=== PATIENT | female | born 1965 | race Caucasian/White ===

== ENCOUNTER 2024-04-30 09:03 | Outpatient (CLI) | payer BC, SELFPAY ==
--- NOTE | 2024-04-30 10:00 | MR_ITS ---
WS: [id number] MRI HEAD WITH CONTRAST TECHNIQUE: Sagittal T1, T2 axial, T2 axial FLAIR, axial susceptibility weighted imaging, axial diffus ion weighted images, and coronal T2 images were obtained. Pre and post-T1 axial and post T1 coronal i mages. ADC and FSPGR images. 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 COMPARISON: None. FINDINGS: No evidence of restricted diffusion to suggest acute ischemia. Ventricular system and basal cisterns are patent. Mild to moderate patchy supratentorial white matter changes some in a pericallosal distri bution. Moderate parenchymal volume loss worse in the parietal lobes. Paranasal sinuses and mastoid a ir cells are well aerated. Normal optic chiasm and pituitary infundibulum. Temporal lobes and hippoca mpal formations are normal in appearance. No abnormal gadolinium enhancement. Normal visualized dural venous sinuses. MR/MR head wo/w con [id number] IMPRESSION: 1. No evidence of restricted diffusion to suggest acute ischemia. 2. Mild to moderate patchy supratentorial white matter changes some in a peric allosal distribution nonspecific in a patient of this age but can be seen with hypertension, diabetes, small vessel changes, and demyelinating disease. 3. Moderate parenchymal volume loss worse in the parietal lobes. 4. No significant T1 hypointense lesion load. No significant atrophy of the co rpus callosum. 5. No abnormal gadolinium enhancement. Normal dural venous sinuses.
[2024-04-30] MEDS: gadobenate dimeglumine 20 mL vial IV (10:23)
== END 2024-04-30 09:04 | disposition home or self-care (01) ==
LOC: RAD 09:05
PROVIDERS: PCP Nurse Practitioner Family; Visit Provider Specialist
DX: G37.9 Demyelinating disease of central nervous system, unspecified (principal); R90.82 White matter disease, unspecified; G31.89 Other specified degenerative diseases of nervous system; H53.2 Diplopia
CPT/HCPCS: 70553

== ENCOUNTER → 2024-05-15 12:40 | Outpatient (BNVA) | payer BC, SELFPAY | PROVIDERS: PCP Nurse Practitioner Family; Visit Provider Specialist | DX: G31.84 Mild cognitive impairment of uncertain or unknown etiology (principal); H53.2 Diplopia; G37.9 Demyelinating disease of central nervous system, unspecified; G30.9 Alzheimer's disease, unspecified | CPT/HCPCS: 36415; 82542; 82607; 83516; 83519; 83520; 84439; 84443 ==